=== PATIENT | male | born 1955 | race Asian ===

== ENCOUNTER → 2020-10-17 12:14 | Outpatient (CLI) | payer MEDICARE, OTHER, SELFPAY ==
--- NOTE | 2020-10-17 | DI.RAD.S_ITS ---
PROCEDURE: XR SHOULDER LT MIN 2V INDICATIONS: LEFT SHOULDER PAIN TECHNIQUE: 3 views of the shoulder were acquired. COMPARISON: None. FINDINGS: Bones: No fractures or dislocations. No suspicious bony lesions. Mild acromioclavicular and glenohumeral joint degeneration. Visualized ribs appear intact. Soft tissues: No suspicious soft tissue calcifications. IMPRESSION: Mild degenerative joint disease. Dictated by: Genevieve Noyola M.D. on 10/17/2020 at 17:35 Approved by: Gneevieve Noyola M.D. on 10/17/2020 at 17:36
== END ==
PROVIDERS: PCP Nurse Practitioner Family; Referring Provider Nurse Practitioner Family; Visit Provider Nurse Practitioner Family
DX: M25.512 Pain in left shoulder (principal); M19.012 Primary osteoarthritis, left shoulder
CPT/HCPCS: 73030

== ENCOUNTER → 2021-01-02 09:37 | Outpatient (CLI) | payer MEDICARE, OTHER, SELFPAY ==
--- NOTE | 2021-01-02 | DI.US.S_ITS ---
PROCEDURE: US ABD AORTA ANEURYSM SCREEN INDICATIONS: HISTORY OF NICOTINE DEPENDENCE TECHNIQUE: Real time scanning was performed of the aorta and iliac arteries, with image documentation. COMPARISON: [facility], CR, XR SHOULDER LT MIN 2V, 10/17/2020, 12:24. FINDINGS: Aorta: Proximal aortic diameter could not be seen due to bowel gas. Mid-aorta measures 2.3 cm. Distal aortic diameter is 2.0 cm. Iliac arteries: Right common iliac artery measures 1.2 cm. Left common iliac artery measures 1.2 cm. IMPRESSION: No aneurysm found. The proximal 3rd of the aorta could not be seen due to bowel gas. Dictated by: Neil Ambriz M.D. on 01/02/2021 at 11:29 Approved by: Neil Ambriz M.D. on 01/02/2021 at 11:30
== END ==
PROVIDERS: PCP Nurse Practitioner Family; Referring Provider Nurse Practitioner Family; Visit Provider Nurse Practitioner Family
DX: Z13.6 Encounter for screening for cardiovascular disorders (principal); Z87.891 Personal history of nicotine dependence
CPT/HCPCS: 76706

== ENCOUNTER → 2021-08-03 07:51 | Outpatient (CLI) | payer MEDICARE, OTHER, SELFPAY ==
--- NOTE | 2021-08-03 | DI.US.S_ITS ---
PROCEDURE: US ABD AORTA ANEURYSM SCREEN INDICATIONS: SCREENING TECHNIQUE: Real time scanning was performed of the aorta and iliac arteries, with image documentation. COMPARISON: [facility], , US ABD AORTA ANEURYSM SCREEN, 01/02/2021, 9:47. FINDINGS: Aorta: Proximal aortic diameter measures 3.0 cm. Mid-aorta measures 2.1 cm. Distal aortic diameter is 1.9 cm. Iliac arteries: Right common iliac artery measures 1.2 cm. Left common iliac artery measures 1.2 cm. IMPRESSION: No aneurysmal dilation. Stable interval exam. Dictated by: Kati Caputo M.D. on 08/03/2021 at 10:29 Approved by: Kati Caputo M.D. on 08/03/2021 at 10:30
== END ==
PROVIDERS: PCP Internal Medicine; Referring Provider Internal Medicine; Visit Provider Internal Medicine
DX: Z13.6 Encounter for screening for cardiovascular disorders (principal)
CPT/HCPCS: 76706

== ENCOUNTER → 2022-02-01 10:27 | Outpatient (CLI) | payer MEDICARE, OTHER, SELFPAY ==
[2022-02-01 12:57] LABS: COVID19 -Nasal RAPID Negative (Negative)
== END ==
PROVIDERS: PCP Internal Medicine; Visit Provider Family Medicine Sleep Medicine
DX: Z20.822 Contact with and (suspected) exposure to COVID-19 (principal)
CPT/HCPCS: 87635; C9803

== ENCOUNTER 2022-02-02 13:48 | Day surgery (SDC) | payer MEDICARE, OTHER, SELFPAY ==
--- NOTE | 2022-02-02 | PATH_ITS ---
[facility] Accession Number: [id number] . 01 Material submitted: . colon - ASCENDING COLON POLYP X2 . 01 Clinical history: . 2MM AND 6MM . 02 Diagnosis: Ascending Colon Polyp x2: Portions of tubular adenoma x2. Superficial portion of colorectal mucosa x1, with scattered benign lymphoid aggregates. MRV 02/04/2022 1638 Local . 02 Electronically signed: . Rebecca Dawn MD, Pathologist NPI- [id number] . 01 Gross description: . ASCENDING COLON POLYP X2: Received in formalin are 3 fragment(s) of rodriguez, soft tissue measuring 0.6 x 0.2 x 0.1 cm to 0.3 x 0.2 x 0.2 cm submitted entirely in 1 cassette(s) /CPE 02/03/2022 0441 Local . 02 Pathologist provided ICD-10: Z12.11, K63.5 . 02 CPT . 950905 Specimen Comment: A courtesy copy of this report has been sent to [phone] Performed at: 01 [facility] [address] [facility], [place], [place] [id number] MD Orlando Art MD Phone: [phone] Performed at: 02 [facility] [address] [place], [place] [id number] MD Caroline Lou MD Phone: [phone]
--- NOTE | 2022-02-02 13:11 | P.HP_ITS ---
History of Present Illness History of Present Illness Date Patient Seen: 02/02/22 Chief complaint: SCREENING COLONOSCOPY Narrative: 66 year old male comes in today for consideration of a screening colonoscopy. He has had 2 lifetime colonoscopies. First colonoscopy was unremarkable. Last colonoscopy in 2017 significant for a 3-5 mm sessile polyp on the ileocecal valve, pathology not available at time of dictation, recall 3 years per patient. There have been no lower GI symptoms suggesting disease such as change in bowel habits, bleeding, abdominal pain or anemia. There's been no family history of colon cancer or colon polyps. Overall health issues have been stable, including no major cardiac events for at least 6 weeks. PCP: SYED Dutton Past medical history: Hypertension Hyperlipidemia Hyponatremia Dermatitis Seborrheic keratosis Osteoarthritis History of colon polyps Past surgical history: Amputation, right thumb tip Appendectomy Left knee arthroscopic Colonoscopy Family history: Noncontributory Social history: , avionics system engineer, retired from [employer]. Patient History Medical History (Updated 02/01/22 @ 16:56 by Jerilyn Coleman RN) [place] (hard of hearing) Meds Home Medications and Allergies Home Medications Medication Instructions Recorded Confirmed Type lisinopril 40 mg tablet 40 mg PO DAILY 02/02/22 02/02/22 History rosuvastatin 10 mg tablet 10 mg PO DAILY 02/02/22 02/02/22 History Allergies Allergy/AdvReac Type Severity Reaction Status Date / Time No Known Drug Allergies Allergy Verified 02/02/22 14:10 Review of Systems Review of Systems Narrative: All remaining ROS were reviewed and negative except as addressed. Exam Narrative Exam Narrative: GENERAL: Alert and oriented, appearing stated age and in no acute distress. HEENT: Head normocephalic/atraumatic. Extraocular movements intact. LUNGS: Clear to ausculation bilaterally, no wheezes, rhonchi or rales. CV: Normal S1 and S2 with regular rate and rhythm, no audible murmurs, rubs or gallops. ABDOMEN: Soft, non-tender, non-distended, no organomegaly. Positive bowel sounds. EXTREMITIES: No clubbing, cyanosis, or edema. NEURO: Cranial nerves II through XII grossly intact, no focal deficits. PSYCH: Alert and oriented x 3. SKIN: No concerning lesions. Assessment & Plan Assessment & Plan narrative: 1. History of colon polyps 2. Screening for colon cancer Plan for colonoscopy. The nature and character of the procedure as well as anticipated results were discussed. The possibility of not completing the procedure was also discussed. Possible complications including aspiration pneumonia, bleeding, perforation and reaction to medications either for sedation or preparation and missed lesions were discussed. Questions were answered and proceeding to the colonoscopy was elected. Informed consent signed. I sincerely appreciate the referral allowing me to participate in this patient's care. Please contact me with any questions or concerns.
--- NOTE | 2022-02-02 13:16 | PM.OP.COLON ---
Operative Date/Time/Diagnoses Date of procedure: 02/02/22 Procedure Notes SCOAP/Timeout: 3:20 p.m. Procedure in detail: ENDOSCOPIST: Jacquie Sandoval MD Sedation RN: Cristal Alberto RN Sedation start time: 3:21 p.m. Sedation end time: 3:43 p.m. PROCEDURE: Colonoscopy with cold biopsy x2 INDICATIONS: 1. History of colon polyps 2. Screening for colon cancer MEDICATION: Levsin 0.125 mg sublingual, incremental doses of Versed and fentanyl until appropriate level sedation achieved. ASA CLASS: 2 CECAL WITHDRAWAL TIME: 13 minutes COMPLICATIONS: None. EXTENT OF PROCEDURE: Cecum. QUALITY OF PREP: Good with portions of liquid stool. PROCEDURE: Prior to insertion of the colonoscope, a digital rectal examination was accomplished with circumferential palpation of the distal rectal mucosa without significant findings being noted. The high-definition colonoscope was passed into the rectum in the usual fashion and advanced over to the cecum without difficulty. The ileocecal valve, appendiceal stoma, and medial wall all could be inspected and no abnormalities were seen. ASCENDING COLON: As the colonoscope was withdrawn, care was taken to expose and inspect the haustral folds and a small 2 mm polyp was seen just proximal to the ileocecal valve, removed with cold biopsy forceps, excellent hemostasis. Proximal to that a 6 mm polyp was seen and removed with cold biopsy forceps in 2 bites, excellent hemostasis. HEPATIC FLEXURE: Normal, no polyps, diverticula or other abnormalities. TRANSVERSE COLON: Normal, no polyps, diverticula or other abnormalities. DESCENDING COLON: Normal, no polyps, diverticula or other abnormalities. SIGMOID COLON: Normal, no polyps, diverticula or other abnormalities. RECTUM: Normal. J maneuver was produced. There was no significant perianal disease. The J maneuver was broken. The remainder of the rectum was inspected and there was no external hemorrhoid disease. The scope was withdrawn. IMPRESSION: 1. Ascending colon polyp x2, 2-6 mm, removed with cold biopsy forceps PLAN: 1. Follow-up in clinic status post pathology results. The possibility of a missed lesion including a malignancy has been discussed with the patient previously. Potential alarm symptoms have been discussed and should be reported immediately.
[2022-02-02 14:13] VITALS: BP 167/96; PULSE 68; RESP 16; TEMP 36.6; O2SAT 100; BMI 28.0
[2022-02-02] MEDS: HYOSCYAMINE 0.125 MG TABLET PO (14:35)
[2022-02-02] MEDS: LACTATED RINGERS 1,000 ML 200 ML IV (15:00)
[2022-02-02] MEDS: fentaNYL 250 MCG/5 ML INJ IV (15:21)
[2022-02-02] MEDS: MIDAZOLAM 5 MG/5 ML VIAL IV (15:21)
[2022-02-02 15:50] VITALS: BP 174/90; PULSE 50; RESP 18; TEMP 36.3; O2SAT 97
[2022-02-02 16:00] VITALS: BP 184/102; PULSE 55; RESP 16; O2SAT 97
[2022-02-02 16:14] VITALS: BP 172/98; PULSE 56; RESP 16; O2SAT 97
--- NOTE | 2022-02-02 16:16 | SUR.PHASEI ---
speaks with Dr Sandoval. A&Ox 3. Drinking water. No complaints.
--- NOTE | 2022-02-02 16:17 | SUR.PHASEI ---
Abdomen soft, passing gas.
[2022-02-02 16:27] VITALS: BP 176/108; PULSE 56; RESP 16; TEMP 36.6; O2SAT 979
[2022-02-02 16:37] VITALS: BP 170/105; PULSE 56; RESP 14; TEMP 36.1; O2SAT 97
== END 2022-02-02 16:37 | disposition home or self-care (01) ==
PROVIDERS: PCP Internal Medicine; Referring Provider Student in an Organized Health Care Education/Training Program; Visit Provider Student in an Organized Health Care Education/Training Program
PROC: 0DJD8ZZ Inspection of Lower Intestinal Tract, Via Natural or Artificial Opening Endoscopic (ICD-10-PCS; CPT 45378; principal; 2022-02-02 15:15)
DX: Z12.11 Encounter for screening for malignant neoplasm of colon (principal); Z86.010 Personal history of colon polyps; D12.2 Benign neoplasm of ascending colon
CPT/HCPCS: 45380; J2250; J3010